=== PATIENT | male | born 1960 | race African-American/Black ===

== ENCOUNTER → 2016-08-26 | Outpatient (CLI) | payer BC ==
[2016-08-28 11:19] LABS: PROSTATE SPECIFIC ANTIGEN 7.4 ng/mL (0.0-4.0); PSA % FREE 8.2 % (.); PSA FREE 0.61 ng/mL
== END ==
LOC: OD 16:46
PROVIDERS: ATTEND Urology
DX: R97.20 Elevated prostate specific antigen [PSA] (principal); N52.8 Other male erectile dysfunction; N52.9 Male erectile dysfunction, unspecified
CPT/HCPCS: 36415; 84154; 84403

== ENCOUNTER → 2017-08-18 | Outpatient (CLI) | payer BC | LOC: OD 17:31 | PROVIDERS: ATTEND Urology | DX: N41.1 Chronic prostatitis (principal); N52.8 Other male erectile dysfunction; N52.9 Male erectile dysfunction, unspecified | CPT/HCPCS: 36415; 84153 ==